=== PATIENT | male | born 1975 | race African-American/Black ===

== ENCOUNTER 2017-03-22 22:25 | Emergency (ER) | payer SELFPAY ==
[~2017-03-22] VITALS: Ht 172.7 cm; Wt 78.0 kg
[2017-03-22] MEDS ORDERED: LORazepam 2MG/ML-1ML VIAL ONE (22:59)
[2017-03-22] MEDS ORDERED: LORazepam 2MG/ML-1ML VIAL IV ONE (23:30)
[2017-03-22 23:36] LABS: Albumin 3.9 g/dL (3.4-5.0); Potassium 3.8 mmol/L (3.5-5.1)
[2017-03-22 23:38] LABS: Acetaminophen < 2.0 ug/mL (10-30); Salicylate 9.1 mg/dL (2.8-20.0)
[2017-03-22 23:40] LABS: Bilirubin, Total 0.5 mg/dL (0.2-1.0); Total Protein 6.9 g/dL (6.4-8.2)
[2017-03-22 23:44] LABS: Hematocrit 40.9 % (41.0-53.0); Hemoglobin 13.9 g/dL (13.5-17.5); Mean Corpuscular Hemoglobin 34.2 pg (28.0-32.0); Mean Corpuscular Volume 100.5 fL (80.0-100.0); Mean Platelet Volume 8.7 fL (6.9-10.8); Platelet Count (auto) 74 10^3/uL (140-450); Red Cell Distribution Width 13.4 % (11.8-14.3); White Blood Cell 5.8 10^3/uL (4.4-10.8)
[2017-03-22 23:52] LABS: Metamyelocytes % 0; Promyelocytes % 0; Reactive Lymphocytes 0
[2017-03-23] MEDS ORDERED: SODIUM CHLORIDE 0.9% 1,000 ML IV ONE (00:15)
[2017-03-23] MEDS ORDERED: THIAMINE HCL 100 MG/ML 2ML VIAL IV ONE (00:15)
[2017-03-23] MEDS ORDERED: MVI in SODIUM CHLORIDE 0.9% 1,010 ML IV ONE (00:15)
[2017-03-23 00:37] LABS: Macrocytosis Slight; Myelocytes % 1; Platelet Estimate Decreased
[2017-03-23 00:38] LABS: Anisocytosis Slight
[2017-03-23] MEDS ORDERED: PHENYTOIN IV DILANTIN 1,000 MG in SODIUM CHL 0.9% 250 ML IV ONE (03:15)
[2017-03-23] MEDS ORDERED: PHENYTOIN SODIUM 50 MG/ML 2ML VIAL IV ONE ×2 (03:32→03:34)
[2017-03-23 05:00] VITALS: BP 110/60
== END 2017-03-23 05:10 | disposition home or self-care (01) ==
LOC: ER 22:25
DX: S76.012A Strain of muscle, fascia and tendon of left hip, initial encounter (principal); G40.909 Epilepsy, unspecified, not intractable, without status epilepticus; T65.91XA Toxic effect of unspecified substance, accidental (unintentional), initial encounter; G92 Toxic encephalopathy; F10.120 Alcohol abuse with intoxication, uncomplicated; W19.XXXA Unspecified fall, initial encounter; Y93.89 Activity, other specified; Y99.8 Other external cause status; Y92.89 Other specified places as the place of occurrence of the external cause
CPT/HCPCS: 36415; 70450; 72125; 73502; 80053; 80185; 80320; 80329; 82542; 85007; 85027; 96361; 96365; 96375; 99285; J1165; J2060; J3411; J3475; J7050

== ENCOUNTER 2017-04-06 19:29 | Emergency (ER) | payer MEDICAID ==
[~2017-04-06] VITALS: Ht 172.7 cm; Wt 78.2 kg
[2017-04-06 20:21] LABS: Hematocrit 39.9 % (41.0-53.0); Mean Corpuscular Hemoglobin 34.3 pg (28.0-32.0)
[2017-04-06 20:23] LABS: Hemoglobin 13.9 g/dL (13.5-17.5); Mean Corpuscular Hgb Conc. 34.8 g/dL (32.0-36.0); Mean Corpuscular Volume 98.5 fL (80.0-100.0); Platelet Count (auto) 53 10^3/uL (140-450); Red Cell Distribution Width 12.7 % (11.8-14.3); White Blood Cell 6.7 10^3/uL (4.4-10.8)
[2017-04-06 20:28] LABS: Metamyelocytes % 0; Myelocytes % 0; Promyelocytes % 0; Reactive Lymphocytes 0
[2017-04-06 20:42] LABS: Albumin 4.2 g/dL (3.4-5.0); BUN/Creatinine Ratio 7.1; Calcium 9.5 mg/dL (8.5-10.1); Potassium 3.2 mmol/L (3.5-5.1)
[2017-04-06 20:45] LABS: Bilirubin, Total 1.1 mg/dL (0.2-1.0); Total Protein 7.9 g/dL (6.4-8.2)
[2017-04-06 20:53] LABS: Platelet Estimate Decreased
[2017-04-07] MEDS ORDERED: PHENYTOIN SODIUM 100 MG CAP PO ONE ×3 (03:00→03:15)
[2017-04-07 04:11] VITALS: BP 136/74
== END 2017-04-07 04:13 | disposition home or self-care (01) ==
LOC: ER 19:35
DX: G43.909 Migraine, unspecified, not intractable, without status migrainosus (principal); F41.9 Anxiety disorder, unspecified
CPT/HCPCS: 36415; 80053; 80185; 82542; 85007; 85027

== ENCOUNTER 2023-05-22 10:12 | Inpatient (IN) | payer MEDICAID ==
[2023-05-18 12:36] LABS: Hematocrit 42.9 % (41.0-53.0); Hemoglobin 14.5 g/dL (13.5-17.5); Mean Corpuscular Hemoglobin 29.4 pg (28.0-32.0); Mean Corpuscular Hgb Conc. 33.8 g/dL (32.0-36.0); Mean Corpuscular Volume 86.9 fL (80.0-100.0); Red Blood Cells 4.94 10^6/uL (4.5-5.90); Red Cell Distribution Width 15.7 % (11.8-14.3); White Blood Cell 9.3 10^3/uL (4.4-10.8)
[2023-05-18 12:52] LABS: Urine Bacteria NONE SEEN /hpf (None Seen); Urine Blood Negative /uL (Negative); Urine Clarity Clear (Clear); Urine Color Colorless (Yellow); Urine Protein, UAD Negative (Negative); Urine Specific Gravity 1.008 (1.001-1.035); Urine Urobilinogen Normal (Negative); Urine WBC <1 /hpf (0 - 3); Urine pH 5.5 (5.0-8.0)
[2023-05-18 13:00] LABS: INR 0.97 (0.9-1.15); Partial Thromboplastin Time 30.9 SEC (24.5-34.5); Prothrombin Time 10.2 sec (9.3-11.8)
[2023-05-18 13:02] LABS: Band Neutrophils % (manual) 0; Basophils % (manual) 0 (0.0-2.0); Blast Cells 0; Myelocytes % 0; Promyelocytes % 0; Reactive Lymphocytes 0
[2023-05-18 13:11] LABS: Alanine Aminotransferase 21 U/L (7-40); Albumin 5.1 g/dL (3.2-4.8); Alkaline Phosphatase 99 U/L (46-116); Anion Gap 8 (5-15); Aspartate Aminotransferase 28 U/L (13-40); Calcium 9.9 mg/dL (8.5-10.1); Carbon Dioxide 28 mmol/L (20-30); Chloride 101 mmol/L (98-107); Glucose 94 mg/dL (74-106); Potassium 4.2 mmol/L (3.5-5.1); Sodium 137 mmol/L (136-145)
[2023-05-18 13:12] LABS: Bilirubin, Total 0.2 mg/dL (0.2-1.0); Total Protein 8.1 g/dL (5.7-8.2)
[2023-05-18 13:23] LABS: BUN/Creatinine Ratio 6.4 (10.0-20.0); Blood Urea Nitrogen < 5 mg/dL (9-23)
[2023-05-18 14:07] LABS: Eosinophils % (manual) 2 (0-7); Lymphocytes % (manual) 25 (10.0-50.0); Metamyelocytes % 5; Monocytes % (manual) 7 (0-12); Platelet Estimate Adequate
[2023-05-22] VITALS (9 sets, daily range): BP systolic 127–134; BP diastolic 58–90; PULSE 86–96; RESP 16–18; TEMP 97.5; O2SAT 90–99
[~2023-05-22] VITALS: Ht 167.6 cm; Wt 129.4 kg
[~2023-05-22 10:12] MED LIST: ALPR0.5T PO; ATOR10TA PO; CHOL500046 PO; DILT-29 PO; DIVA500T3 PO; HYDR1TAB97 PO; HYDR50CA PO; LEVE100012 PO; LURA80TA2 PO; OMEP20TA PO; QUET200T30 PO; SERT-160 PO; TRAM50TA2 PO; [UNRECOGNIZED DRUG - CODE] PO
[2023-05-22] MEDS ORDERED: VANCOMYCIN HCL 1000 MG VL ONE (10:14)
[2023-05-22] MEDS ORDERED: TRANEXAMIC ACID 20 ML ONE (10:15)
[2023-05-22] MEDS ORDERED: EPINEPHrine HCL 1 MG/1 ML AMP ONE ×3 (10:15→10:47)
[2023-05-22] MEDS ORDERED: SODIUM CHLORIDE LOCK 10 ML ONE (10:44)
[2023-05-22] MEDS ORDERED: PROPOFOL 10 MG/ML 20 ML IV ONE ×3 (10:44→13:45)
[2023-05-22] MEDS ORDERED: DexAMETHasone SOD PHOS 10MG/1ML VIAL INJ ONE (10:44)
[2023-05-22] MEDS ORDERED: fentaNYL CITRATE 100 MCG/2 ML VL ONE (10:44)
[2023-05-22] MEDS ORDERED: ONDANSETRON HCL 4 MG/2 ML VIAL ONE (10:44)
[2023-05-22] MEDS ORDERED: MORPHINE SULF PF 5 MG/10 ML VIAL ONE (10:44)
[2023-05-22] MEDS ORDERED: MIDAZOLAM HCL 2MG/2ML 2ml VIAL (1mg/ml) ONE ×2 (10:44→11:37)
[2023-05-22] MEDS ORDERED: TETRACAINE 1% INJ 2 ML VIAL IJ ONE (10:46)
[2023-05-22] MEDS ORDERED: oxyCODONE HCL 5MG TAB PO PRN ×2 (11:30)
[2023-05-22] MEDS: SODIUM CHLORIDE 0.9% 1,000 ML IV SCH ×3 (11:30→18:26)
[2023-05-22] MEDS ORDERED: ONDANSETRON HCL 4 MG/2 ML VIAL IV PRN (13:45)
[2023-05-22] MEDS ORDERED: ceFAZolin 2 GM/D5W100ml 100 ML IV SCH (14:00)
[2023-05-22] MEDS ORDERED: diphenhdrAMINE HCL 50 MG/1 ML VL IV PRN (14:15)
[2023-05-22] MEDS ORDERED: METOCLOPRAMIDE HCL 5MG/ml INJ 2ml VIAL IV PRN (14:15)
[2023-05-22] MEDS ORDERED: MORPHINE SULFATE INJ 2 MG/ml SYRG IV PRN (14:15)
[2023-05-22] MEDS ORDERED: HYDROmorphone HCL 2 MG/ML VL/or syr IV PRN ×2 (14:15)
[2023-05-22] MEDS ORDERED: NALOXONE HCL 0.4 MG/ML VIAL IV PRN (14:15)
[2023-05-22] MEDS: KETOROLAC TROMETH 30 MG/ML 1ML VIAL IV SCH ×2 (18:28→23:31)
[2023-05-22] MEDS: ACETAMINOPHEN 325 MG TAB PO SCH ×2 (18:28→23:31)
[2023-05-22] MEDS: ceFAZolin 2 GM/D5W100ml 100 ML IV SCH (18:42)
[2023-05-22] MEDS: LACOSAMIDE 50 MG TAB PO SCH (21:05)
[2023-05-22] MEDS: levETIRAcetam 500 MG TAB PO SCH (21:07)
[2023-05-22] MEDS ORDERED: QUEtiapine FUMARATE 100 MG TAB PO SCH (22:00)
[2023-05-22] MEDS: CYPROHEPTADINE HCL 4 MG TAB PO SCH (22:00)
[2023-05-23] VITALS (15 sets, daily range): BP systolic 109–141; BP diastolic 58–92; PULSE 83–101; RESP 16–20; TEMP 97.5–98.6; O2SAT 89–96
[2023-05-23] MEDS: ceFAZolin 2 GM/D5W100ml 100 ML IV SCH (03:24)
[2023-05-23 05:50] LABS: Anion Gap 3 (5-15); Carbon Dioxide 30 mmol/L (20-30); Chloride 103 mmol/L (98-107); Potassium 4.4 mmol/L (3.5-5.1); Sodium 136 mmol/L (136-145)
[2023-05-23 05:56] LABS: BUN/Creatinine Ratio 7.7 (10.0-20.0); Blood Urea Nitrogen 7 mg/dL (9-23); Glucose 167 mg/dL (74-106)
[2023-05-23 06:00] LABS: Basophils # (auto) 0 10 ^3/uL (0-0.2); Basophils % (auto) 0.2 % (0.0-2.0); Eosinophils # (auto) 0 10 ^3/uL (0-0.8); Hematocrit 32.9 % (41.0-53.0); Hemoglobin 10.9 g/dL (13.5-17.5); Lymphocytes # (auto) 1.2 10 ^3/uL (0.4-5.4); Lymphocytes % (auto) 10.8 % (10.0-50.0); Mean Corpuscular Hemoglobin 29.2 pg (28.0-32.0); Mean Corpuscular Hgb Conc. 33.2 g/dL (32.0-36.0); Mean Corpuscular Volume 87.9 fL (80.0-100.0); Monocytes # (auto) 1.4 10 ^3/uL (0-1.3); Monocytes % (auto) 13.3 % (0.0-12.0); Neutrophils # (auto) 8.2 10 ^3/uL (1.6-8.6); Neutrophils % (auto) 75.7 % (37.0-80.0); Nucleated Red Blood Cells % 0.1 %; Red Blood Cells 3.74 10^6/uL (4.5-5.90); Red Cell Distribution Width 15.6 % (11.8-14.3); White Blood Cell 10.9 10^3/uL (4.4-10.8)
[2023-05-23] MEDS: SODIUM CHLORIDE 0.9% 1,000 ML IV SCH (06:06)
[2023-05-23] MEDS: ACETAMINOPHEN 325 MG TAB PO SCH ×2 (06:06→12:00)
[2023-05-23] MEDS: KETOROLAC TROMETH 30 MG/ML 1ML VIAL IV SCH ×2 (06:06→12:00)
[2023-05-23] MEDS ORDERED: dilTIAZem 120MG ER CAP PO SCH (10:00)
[2023-05-23] MEDS ORDERED: PANTOPRAZOLE 40 MG TAB PO SCH (10:00)
[2023-05-23] MEDS ORDERED: LATUDA 80MG PO SCH (10:00)
[2023-05-23] MEDS ORDERED: SERTRALINE HCL 50 MG TAB PO SCH (10:00)
[2023-05-23] MEDS ORDERED: ATORVASTATIN 20 MG TAB PO SCH (10:00)
[2023-05-23] MEDS ORDERED: OMEPRAZOLE-SOD BICARB 20 MG POWDER PO SCH (10:00)
[2023-05-23] MEDS ORDERED: DILTIAZEM HCL 120 MG PO SCH (10:00)
[2023-05-23] MEDS ORDERED: APIXABAN 2.5 MG TAB PO SCH (10:00)
[2023-05-23] MEDS: CYPROHEPTADINE HCL 4 MG TAB PO SCH (10:00)
[2023-05-23] MEDS: LACOSAMIDE 50 MG TAB PO SCH (10:06)
[2023-05-23] MEDS: levETIRAcetam 500 MG TAB PO SCH (10:10)
== END 2023-05-23 17:26 | disposition home health service (06) | DRG 324 ==
LOC: SUR 10:12 → EDSTATUS 11:00 → OVERFLOW 13:44 → EAST 17:26 → TELE-EAST 18:14
PROVIDERS: ADMIT Orthopaedic Surgery; ATTEND Orthopaedic Surgery
PROC: 0SR906Z Replacement of Right Hip Joint with Oxidized Zirconium on Polyethylene Synthetic Substitute, Open Approach (ICD-10-PCS; principal; 2023-05-22 11:27)
DX: M87.851 Other osteonecrosis, right femur (principal)
CPT/HCPCS: 36415; 72170; 73501; 80048; 80053; 81001; 85007; 85025; 85027; 85610; 85730; 86850; 86900; 86901; 97110; 97116; 97163; 97530; C1776; G0378; J0171; J1100; J1885; J2250; J2405; J2704